=== PATIENT | male | born 1990 | race Caucasian/White ===

== ENCOUNTER 2016-07-11 10:28 | Emergency (ER) | payer BC ==
[2016-07-11 10:50] VITALS: BP 151/114
--- NOTE | 2016-07-11 11:49 | UC ---
Throat Pain/Nasal Richard HPI - HPI Summary HPI Summary: ST ears, mild nasal congestion starting about 2 days ago. Achy and chills. - History of Current Complaint Chief Complaint: UCRespiratory Stated Complaint: THROAT,CONGESTION,EARS Time Seen by Provider: 07/11/16 11:26 Hx Obtained From: Patient Onset/Duration: Gradual Onset, Lasting Days Severity: Moderate Cough: None Associated Signs & Symptoms: Negative: Wheezing, Hoarseness, Sinus Discomfort - Allergies/Home Medications Allergies/Adverse Reactions: Allergies Allergy/AdvReac Type Severity Reaction Status Date / Time No Known Allergies Allergy Verified 07/11/16 10:50 Home Medications: Home Medications NK [No Home Medications Reported] 07/11/16 [History Confirmed 07/11/16] PMH/Surg Hx/FS Hx/Imm Hx Previously Healthy: Yes - Surgical History Surgical History: None - Family History Known Family History: Positive: Hypertension - Social History Lives: With Family Alcohol Use: Rare Substance Use Type: None Smoking Status (MU): Never Smoked Tobacco Review of Systems Constitutional: Chills Skin: Negative Eyes: Negative ENT: Sore Throat, Ear Ache Respiratory: Negative Cardiovascular: Negative Gastrointestinal: Negative Genitourinary: Negative Motor: Negative Neurovascular: Negative Musculoskeletal: Negative Neurological: Negative Psychological: Negative All Other Systems Reviewed And Are Negative: Yes Physical Exam Triage Information Reviewed: Yes Appearance: Well-Appearing, No Pain Distress, Obese Vital Signs: Initial Vital Signs Temp 98.8 F 07/11/16 10:48 Pulse 98 07/11/16 10:48 Resp 16 07/11/16 10:48 BP 151/114 07/11/16 10:48 Pulse Ox 96 07/11/16 10:48 Vital Signs Reviewed: Yes Eye Exam: Normal Eyes: Positive: Conjunctiva Clear ENT: Positive: Hearing grossly normal, TMs normal, Tonsillar swelling, Tonsillar exudate Dental Exam: Normal Neck: Positive: Enlarged Nodes @ - tonsillar Respiratory Exam: Normal Respiratory: Positive: Chest non-tender, Lungs clear, Normal breath sounds, No respiratory distress, No accessory muscle use Cardiovascular Exam: Normal Cardiovascular: Positive: RRR - high 90s, No Murmur Musculoskeletal Exam: Normal Neurological Exam: Normal Psychological Exam: Normal Skin Exam: Normal Throat Pain/Nasal Course/Dx - Differential Dx/Diagnosis Provider Diagnoses: tonsillitis Discharge - Discharge Plan Condition: Stable Disposition: HOME Patient Education Materials: Tonsillitis (ED) Additional Instructions: Your rapid strep was negative. Most cases of tonsillitis not caused by strep get better on their own in 7-10 days. Take ibuprofen as needed and rest a lot. If you have new or severe symptoms, please see your primary care provider or return here.
== END 2016-07-11 11:54 | disposition home or self-care (01) ==
LOC: EDSEX → UCCORT 10:28
DX: J03.90 Acute tonsillitis, unspecified (principal); E66.9 Obesity, unspecified
CPT/HCPCS: 87502; 87651; 99201; G0463